=== PATIENT | female | born 1975 | race Caucasian/White ===

== ENCOUNTER 2023-06-19 17:55 | Inpatient (IN) | payer BC, SELFPAY ==
[2023-06-19] VITALS (38 sets, daily range): BP systolic 106–141; BP diastolic 65–85; PULSE 101–121; RESP 14–29; TEMP 36.8–37.6; O2SAT 99–100; BMI 29.5; BMI 28.9
--- NOTE | 2023-06-19 18:29 | ED_ITS ---
HPI - General Adult General Chief complaint: Nausea/Vomiting/Diarrhea Stated complaint: NAUSEA/VOMITING, SIDE PAIN Time Seen by Provider: 06/19/23 18:14 Mode of arrival: walk-in History of Present Illness HPI narrative: patient is a 48-year-old female to history of insulin-dependent diabetes who presents to the Emergency Room for the evaluation of vomiting, diarrhea and abdominal pain for the last three days. She states she had right-sided abdominal pain over the weekend which is improved at this time but she has had vomiting and diarrhea that began last night. Blood sugar in triage is over three hundred. She has not had any fevers, chills, cough, congestion. She denies any urinary symptoms. No previous abdominal surgeries. She is not concerned for . She states she is supposed to have an incision and drainage on a chest wall abscess that has been present for several weeks with a surgeon tomorrow afternoon. No medications taken prior to arrival. Related Data Allergies Allergy/AdvReac Type Severity Reaction Status Date / Time No Known Drug Allergies Allergy Verified 06/19/23 17:59 Review of Systems ROS Constitutional Denies: fever or chills Ears, nose, mouth, and throat Denies: throat pain Cardiovascular Denies: chest pain Respiratory Denies: shortness of breath or cough Gastrointestinal Reports: abdominal pain, nausea and vomiting Genitourinary Denies: painful urination Musculoskeletal Denies: back pain or neck pain Integumentary/Breast Denies: rash Neurological Denies: headache Allergic/Immunologic Denies: hives Exam Narrative Exam Narrative: Gen.: Awake, alert, in no distress Head: Normocephalic, atraumatic ENT: dry mucous membranes, breath smells of ketones Respiratory: No respiratory distress, lungs clear bilaterally Cardio: tachycardia Gastrointestinal: Abdomen is soft, mildly distended but not tender, no guarding or rebound Extremities: Moves extremities equally, no injuries noted Psych: Normal mood and affect Neuro: No focal neuro deficit Skin: Warm, dry, intact Constitutional Vital Signs, click to edit/add: Last Vital Signs Temp 98.2 F 06/19/23 18:00 Pulse 116 H 06/19/23 18:00 Resp 18 06/19/23 18:00 BP 132/66 06/19/23 18:00 Pulse Ox 99 06/19/23 18:00 O2 Del Method Room Air 08/07/23 19:35 Course Vital Signs Vital signs: Vital Signs Temperature 98.2 F 06/19/23 18:00 Pulse Rate 116 H 06/19/23 18:00 Respiratory Rate 18 06/19/23 18:00 Blood Pressure 132/66 06/19/23 18:00 Pulse Oximetry 99 06/19/23 18:00 Oxygen Delivery Method Room Air 06/19/23 18:00 Temperature 98.2 F 06/19/23 18:00 Pulse Rate 116 H 06/19/23 18:00 Respiratory Rate 18 06/19/23 18:00 Blood Pressure 132/66 06/19/23 18:00 Pulse Oximetry 99 06/19/23 18:00 Oxygen Delivery Method Room Air 06/19/23 19:35 Medical Decision Making MDM Narrative Medical decision making narrative: on arrival to the Emergency Room, patient was noted to be clinically dehydrated, smell of ketones and tachycardic. IV was established and the patient received 2 L of IV fluids, morphine for pain and Zofran for nausea. She had no persistent emesis in the Emergency Room. labs studies show that the patient has significant leukocytosis, no bandemia. Blood sugar is elevated, CO2 is 7.5 with anion gap 31.3. Patient noted to have small acetone on blood studies as well, blood cultures are pending. Chest x-rays unremarkable. CT of the abdomen and pelvis with IV contrast shows the patient has ruptured appendicitis with formation of abscess. Discussed with Dr. Cool (2014) for general surgery who recommended treatment with invanz and admission to medical service for optimization before surgery tomorrow morning. Discussed with Dr. Bansal (2019) for hospitalist service and the patient will be admitted for further evaluation and treatment ICU with insulin drip initiated at seven units per hour. Patient's pain is controlled at this time. Critical care time thirty-five minutes Medical Records Medical records reviewed: Yes I reviewed the patient's medical records Lab Data Lab results reviewed: Yes I reviewed the patient's lab results Labs: Lab Results 06/19/23 06/19/23 Range/Units 18:29 19:22 WBC 20.4 H (4.0-11.0) 10^3/uL RBC 4.58 (4.20-5.40) 10^6/uL Hgb 13.1 (12.0-16.0) g/dL Hct 40.5 (36.0-48.0) % MCV 88.4 (81.0-99.0) fL MCH 28.6 (26.7-34.0) pg MCHC 32.3 (29.9-35.2) g/dL RDW 13.1 (11.0-15.0) % Plt Count 325 (150-450) 10^3/uL MPV 10.2 (9.5-13.5) fL Neut % (Auto) 88.2 H (43.0-75.0) % Lymph % (Auto) 4.0 L (20.5-60.0) % [place] % (Auto) 5.9 (1.7-12.0) % Eos % (Auto) 0.0 L (0.9-7.0) % Baso % (Auto) 0.5 (0.2-2.0) % Neut # (Auto) 18.0 H (1.4-6.5) 10^3/uL Lymph # (Auto) 0.8 L (1.2-3.8) 10^3/uL [place] # (Auto) 1.2 H (0.3-0.8) 10^3/uL Eos # (Auto) 0.0 (0.0-0.7) 10^3/uL Baso # (Auto) 0.1 (0.0-0.1) 10^3/uL Abs Immat Gran (auto) 0.28 H (0.00-0.03) 10^3/uL Imm/Tot Granulo (auto) 1.4 H (0.0-0.5) % Sodium 133 L (136-145) mmol/L Potassium 3.8 (3.5-5.1) mmol/L Chloride 98 (98-107) mmol/L Carbon Dioxide 7.5 L (21.0-32.0) mmol/L Anion Gap 31.3 BUN 7.0 (7.0-18.0) mg/dL Creatinine 0.87 (0.55-1.02) mg/dL Est GFR ( Amer) >60 (>=60) Est GFR (Non-Af Amer) >60 (>=60) BUN/Creatinine Ratio 8.0 Glucose 379 H (74-106) mg/dL Lactate 1.5 (0.4-2.0) mmol/L Calcium 8.6 (8.5-10.1) mg/dL Total Bilirubin 0.8 (0.2-1.0) mg/dL AST 16 (15-37) U/L ALT 20 (14-59) U/L Alkaline Phosphatase 121 H (46-116) U/L Troponin I High Sens 7.8 (4.0-51.3) pg/mL Total Protein 8.6 H (6.4-8.2) g/dL Albumin 2.8 L (3.4-5.0) g/dL Globulin 5.8 g/dL Albumin/Globulin Ratio 0.5 Lipase 32.0 L (73.0-393.0) U/L Serum HCG, Qual Negative (NEGATIVE) Urine Color Lt. yellow (YELLOW) Urine Clarity Clear (CLEAR) Urine pH 5.5 (5.0-9.0) Ur Specific [place] 1.025 (1.005-1.025) Urine Protein 100 A (NEG/TRACE) mg/dL Urine Glucose (UA) 500 A (NEGATIVE) mg/dL Urine Ketones >=80 A (NEGATIVE) mg/dL Urine Occult Blood Large A (NEGATIVE) Urine Nitrite Negative (NEGATIVE) Urine Bilirubin Negative (NEGATIVE) Urine Urobilinogen 0.2 (0.2-1.0) EU/dL Ur Leukocyte Esterase Negative (NEGATIVE) Acetone, Qual Small A (NEGATIVE) Imaging Data CT scan - abdomen: Attestation: I have reviewed the pertinent imaging results. Radiologist's impression: Procedure: CT abdomen pelvis w con EXAM: CT abdomen pelvis w con TECHNIQUE: Axial CT images were obtained of the abdomen and pelvis with intravenous contrast. Sagittal and coronal reformatted images were also obtained. Dose reduction techniques were achieved by using automated exposure control and/or adjustment of mA and/or kV according to patient size and/or use of iterative reconstruction technique. HISTORY: Abdominal pain COMPARISON: None. FINDINGS: Lower chest: The lower lungs are clear. Liver: Partial resection of the right lobe of liver. Decreased attenuation of the remaining liver consistent with steatosis. Gallbladder: Status post cholecystectomy. No significant biliary dilatation. Pancreas: The pancreas is homogeneous without evidence for mass lesion or inflammation. Spleen: The spleen is unremarkable without evidence for mass lesion. Adrenal glands: The adrenal glands are unremarkable Kidneys and bladder: Small cyst of the anterior cortex right kidney. Unremarkable left kidney. The ureters demonstrate normal caliber. Urinary bladder is distended. GI Tract: Stomach is unremarkable. Visualized small bowel is unremarkable without evidence for obstruction or active inflammation. The appendix is swollen with surrounding inflammation. There is a 2.5 cm gas and fluid collection near the base of the appendix suggesting rupture and abscess. Additional extraluminal fluid and gas medial to the appendix.7 mm appendicolith is seen at the base of the appendix.Secondary inflammation of the mid sigmoid colon. Reproductive: 3.6 cm fibroid of the posterior fundus of the uterus. Lymph nodes: No retroperitoneal or abdominal lymphadenopathy. Vascular: The aorta is not dilated. Peritoneum: Small amount of free fluid in the pelvis. Abdominal wall: Unremarkable without acute abnormality. IMPRESSION: Findings consistent with ruptured appendicitis including a 2.4 cm abscess near the base the appendix. There is also a small amount of fluid and gas medial to the base of the appendix which may represent additional developing abscess. Electronically authenticated by: RAISA TOVAR Date: 06/19/2023 20:00 Chest x-ray: Attestation: I have reviewed the pertinent imaging results. Radiologist's impression: Procedure: XR chest 1V EXAMINATION: XR chest 1V HISTORY: Vomiting COMPARISON: None. TECHNIQUE: Portable chest FINDINGS: The lung parenchyma is free of consolidation or infiltrate. No pneumothorax or pleural effusion. The cardiac, mediastinal and hilar contours are normal. The visualized osseous structures exhibit no gross abnormality. IMPRESSION: No acute cardiopulmonary abnormality. Electronically authenticated by: COBY AYERS Date: 06/19/2023 20:15 ECG Data Attestation: I personally reviewed and interpreted this ECG as follows: (sinus tachycardia at a rate of 114, no acute ST elevation or ectopy. EKG reviewed by attending physician) Discharge Plan Discharge Chief Complaint: Nausea/Vomiting/Diarrhea Patient Disposition: Admitted As Inpatient Time of Disposition Decision: 20:29 Referrals: Physician,Non-Staff, MD [Primary Care Provider] - 1 week
[2023-06-19] MEDS: 0.9 % SODIUM CHLORIDE 1,000 ML 100 ML IV (18:31)
[2023-06-19] MEDS: ONDANSETRON PF 4 MG/2 ML VIAL IV (18:32)
[2023-06-19] MEDS: MORPHINE SULFATE 4 MG/ML VIAL IV (18:38)
[2023-06-19 18:43] LABS: Basophils Absolute Auto 0.1 10^3/uL (0.0-0.1); Basophils Percent Auto 0.5 % (0.2-2.0); Hematocrit 40.5 % (36.0-48.0); Hemoglobin 13.1 g/dL (12.0-16.0); Immature Granulocytes Abs Auto 0.28 10^3/uL (0.00-0.03); Immature Granulocytes Pct Auto 1.4 % (0.0-0.5); Lymphocytes Absolute Auto 0.8 10^3/uL (1.2-3.8); Mean Corpuscular HGB Conc 32.3 g/dL (29.9-35.2); Mean Corpuscular Hemoglobin 28.6 pg (26.7-34.0); Mean Corpuscular Volume 88.4 fL (81.0-99.0); Mean Platelet Volume 10.2 fL (9.5-13.5); Monocytes Absolute Auto 1.2 10^3/uL (0.3-0.8); Monocytes Percent Auto 5.9 % (1.7-12.0); Neutrophils Percent Auto 88.2 % (43.0-75.0); Platelet Count 325 10^3/uL (150-450); Red Blood Count 4.58 10^6/uL (4.20-5.40); Red Cell Distribution Width 13.1 % (11.0-15.0); White Blood Count 20.4 10^3/uL (4.0-11.0)
[2023-06-19 18:49] LABS: HCG Qualitative NEGATIVE (NEGATIVE)
[2023-06-19 18:55] LABS: Acetone SMALL (NEGATIVE)
[2023-06-19 19:00] LABS: Lactate/Lactic Acid 1.5 mmol/L (0.4-2.0)
[2023-06-19 19:06] LABS: Alanine Aminotransferase 20 U/L (14-59); Albumin Globulin Ratio 0.5; Albumin Level 2.8 g/dL (3.4-5.0); Alkaline Phosphatase 121 U/L (46-116); Anion Gap 31.3; Aspartate Amino Transferase 16 U/L (15-37); Bilirubin Total 0.8 mg/dL (0.2-1.0); Calcium 8.6 mg/dL (8.5-10.1); Carbon Dioxide 7.5 mmol/L (21.0-32.0); Chloride 98 mmol/L (98-107); Estimated GFR (African America >60 (>=60); Estimated GFR (Non-African Ame >60 (>=60); Globulin 5.8 g/dL; Glucose 379 mg/dL (74-106); Potassium 3.8 mmol/L (3.5-5.1); Sodium 133 mmol/L (136-145); Total Protein 8.6 g/dL (6.4-8.2)
--- NOTE | 2023-06-19 19:19 | XR_ITS ---
The [address] [address] Patient Name: DARREN CARBAJAL MRN: [id number] date: 1975 Sex: F Assigned Patient Location: ED.MAIN Current Patient Location: ED.MAIN Accession/Order Number: [id number] Exam Date: 06/19/2023 19:38 Report Date: 06/19/2023 20:15 At the request of: NURYS MOSS Procedure: XR chest 1V EXAMINATION: XR chest 1V HISTORY: Vomiting COMPARISON: None. TECHNIQUE: Portable chest FINDINGS: The lung parenchyma is free of consolidation or infiltrate. No pneumothorax or pleural effusion. The cardiac, mediastinal and hilar contours are normal. The visualized osseous structures exhibit no gross abnormality. XR/XR chest 1V IMPRESSION: No acute cardiopulmonary abnormality. Electronically authenticated by: COBY AYERS Date: 06/19/2023 20:15
--- NOTE | 2023-06-19 19:20 | ECG_ITS ---
The [facility] Test Date: 2023-06-19 Pat Name: DARREN CARBAJAL Department: Room: - Gender: Female Residential Care Facility Manager: : 1975 Requested By: [id number] Order Number: [id number] Reading MD: TATIANA ADDISON Measurements Intervals [place] Rate: 114 P: 47 DC: 164 QRS: -44 QRSD: 96 T: 42 QT: 344 QTc: 412 Interpretive Statements 1120 Sinus tachycardia 4068 Nonspecific [place] abnormality 7200 Abnormal left axis deviation 9140 abnormal rhythm ECG Electronically Signed On 06-20-2023 7:16:08 EDT by TATIANA ADDISON
[2023-06-19 19:49] LABS: Troponin I High Sensitivity 7.8 pg/mL (4.0-51.3)
[2023-06-19] MEDS: 0.9 % SODIUM CHLORIDE 1,000 ML 1000 ML IV (20:06)
[2023-06-19 20:09] LABS: Bilirubin Urine NEGATIVE (NEGATIVE); Blood Urine LARGE (NEGATIVE); Clarity Urine CLEAR (CLEAR); Color Urine LT. YELLOW (YELLOW); Glucose Urine UA 500 mg/dL (NEGATIVE); Ketones Urine >=80 mg/dL (NEGATIVE); Leukocyte Esterase Urine NEGATIVE (NEGATIVE); Nitrite Urine NEGATIVE (NEGATIVE); Protein Urine 100 mg/dL (NEG/TRACE); Specific Gravity Urine 1.025 (1.005-1.025); Urobilinogen Urine 0.2 EU/dL (0.2-1.0); pH Urine 5.5 (5.0-9.0)
[2023-06-19 20:12] LABS: Urine Microscopic Indicated YES
[2023-06-19 20:28] LABS: Mucus Urine NONE SEEN (NONE SEEN); RBC Urine 20-50 #/HPF (0-2); Squamous Epithelial Cell Urine RARE #/LPF (NONE/RARE); WBC Urine 0-2 #/HPF (NONE SEEN)
[2023-06-19 20:29] LABS: Bacteria Urine TRACE #/HPF (NONE SEEN); Cast Seen? SEEN #/LPF (NONE SEEN); Crystals Seen? None Seen #/HPF (None Seen); Fine Granular Casts Urine RARE; Urine Culture Indicated NO
[2023-06-19] MEDS: ERTAPENEM SODIUM 1 GM in 0.9 % SODIUM CHLORIDE 50 ML IV (20:45)
[2023-06-19] MEDS: INSULIN REGULAR IN 0.9 % NACL 100 UNIT/100 ML PLAST..BAG 7 UNIT IV (20:45)
[2023-06-19 21:58] LABS: Glucometer 278 mg/dL (74-106)
[2023-06-19] MEDS: SODIUM CHLORIDE 0.45 % 1,000 ML 200 ML IV (23:00)
--- NOTE | 2023-06-19 23:39 | W.PM.TELEPN ---
Progress Note: Subjective Subjective Interval history: The patient is a 48yo woman with a PMHx of T2DM, Hypertension who presented to the ED with abdominal pain. She states that she first started to have pain on 06/15/2023 on the right side without any radiation. She did not notice any fevers or chills, but her noted that she felt hot when he touched her. The pain continued until 06/18/2023 when it subsided. She thought that maybe she had had a kidney stone, but by the evening she had developed nausea, vomiting, and worsening abdominal pain. Today, she had to come in because the pain was 10/10 and right sided. She was found to have a perforated appendix and also to have hyperglycemia with metabolic acidosis, an anion gap and elevated ketones. She admits that she has not been taking any of her medications about about 3 weeks because she ran out and she lost access to her former PCP and needs to find a new one. Exam Constitutional Vital Signs, click to edit/add: Last Vital Signs Temp 99.7 F 06/19/23 21:46 Pulse 115 H 06/19/23 21:49 Resp 20 06/19/23 21:49 BP 141/85 06/19/23 21:46 Pulse Ox 100 06/19/23 21:49 O2 Del Method Room Air 06/19/23 21:49 Documenting provider has reviewed patient's vital signs: yes Common normals: no apparent distress, oriented x3, no limitations, alert and well nourished General appearance: comfortable HENMT Common normals: normocephalic Chest Common normals: inspection of chest normal Respiratory Common normals: normal respiratory effort, no retractions, no use of accessory muscles and clear to auscultation bilaterally Cardio Common normals: no JVD, regular rate, regular rhythm, S1 normal heart sound, S2 normal heart sound and no murmurs GI Common normals: Normal to inspection, nondistended, normoactive bowel sounds present Palpation: tender and guarding Extremity Common normals: normal to inspection, full ROM, no joint enlargement, no clubbing, cyanosis or edema, no calf tenderness and no pedal edema Neuro Common normals: oriented x3, CN's II-XII intact bilaterally, moves all extremities, no focal motor deficits, no sensory deficits noted, deep tendon reflexes 2+ bilaterally and gait normal Psych Common normals: mental status grossly normal, thought process normal, cooperative, affect normal, speech normal, activity/motor behavior normal, denies hallucinations, denies homicidal ideation and denies suicidal ideation Progress Note: Objective Labs Labs: Short CBC 06/19/23 Range/Units 18:29 WBC 20.4 H (4.0-11.0) 10^3/uL Hgb 13.1 (12.0-16.0) g/dL Hct 40.5 (36.0-48.0) % Plt Count 325 (150-450) 10^3/uL BMP 06/19/23 18:29 Sodium 133 L Potassium 3.8 Chloride 98 Carbon Dioxide 7.5 L BUN 7.0 Creatinine 0.87 Glucose 379 H Calcium 8.6 Liver Function 06/19/23 Range/Units 18:29 Total Bilirubin 0.8 (0.2-1.0) mg/dL AST 16 (15-37) U/L ALT 20 (14-59) U/L Alkaline Phosphatase 121 H (46-116) U/L Albumin 2.8 L (3.4-5.0) g/dL Urine 06/19/23 Range/Units 19:22 Urine Color Lt. yellow (YELLOW) Urine Clarity Clear (CLEAR) Urine pH 5.5 (5.0-9.0) Ur Specific [place] 1.025 (1.005-1.025) Urine Protein 100 A (NEG/TRACE) mg/dL Urine Glucose (UA) 500 A (NEGATIVE) mg/dL Progress Note: A&P Assessment and Plan (1) Acute appendicitis: Assessment and Plan: See below (2) DKA (diabetic ketoacidosis): Assessment and Plan: See below (3) Acute dehydration: Assessment and Plan: See below (4) Hypertension: Assessment and Plan: See below Plan 1. Perforated appendicitis The patient presented with abdominal pain and was foudn to have leukocytosis and a CT that showed a perforated appendix. She requires surgery after she is stabilized. - admit to hospitalist service - General surgery consulted - c/w ertapenem - f/u blood cultures - pain control - c/w IVF 2. Diabetic Ketoacidosis T2DM Dehydration The patient has been non-compliant with her insulin and metformin for about 3 weeks and presents with DKA, likely partially driven by her appendicitis. She also appears dehydrated secondary to DKA and infection. - c/w insulin drip - c/w 1/2 NS at 200ml/hr and switch to D5 1/2NS at 200 ml/hr once BG <200. - trend BG q1h - trend BMP, Phos, Mg q2h whilst on insulin drip - f/u HbA1c 3. Hypertension Elevated in the setting of pain and non-compliance. - hold lisinopril Telemedicine Attestation Telemedicine Attestation I conducted this encounter from [place] via secure live, [id number] video conference with the patient, located at [facility] with Donna Posada Prior to the interview, the risks and benefits of telemedicine were discussed with the patient and verbal consent was obtained.
[2023-06-19 23:58] LABS: Anion Gap 21.1; BUN Creatinine Ratio 7.4; Calcium 7.7 mg/dL (8.5-10.1); Carbon Dioxide 10.6 mmol/L (21.0-32.0); Chloride 107 mmol/L (98-107); Estimated GFR (African America >60 (>=60); Estimated GFR (Non-African Ame >60 (>=60); Glucose 233 mg/dL (74-106); Magnesium 1.7 mg/dL (1.8-2.4); Sodium 136 mmol/L (136-145)
[2023-06-20] VITALS (162 sets, daily range): BP systolic 85–132; BP diastolic 46–83; PULSE 73–116; RESP 9–34; TEMP 36.3–37.3; O2SAT 92–99; BMI 28.9
[2023-06-20 00:02] LABS: Phosphorus 1.1 mg/dL (2.6-4.7); Potassium 2.7 mmol/L (3.5-5.1)
[2023-06-20] MEDS: DEXTROSE 5 %-0.45 % SOD CHLOR 1,000 ML IV.SOLN 1000 ML IV (00:39)
[2023-06-20] MEDS: POTASSIUM CHLORIDE IN 0.9%NACL 1,000 ML 200 MEQ IV (01:32)
[2023-06-20] MEDS: POTASSIUM CHLORIDE IN WATER 10 MEQ/100 ML PIGGYBACK 100 MEQ IV ×4 (01:33→04:56)
[2023-06-20] MEDS: ACETAMINOPHEN 325 MG TABLET 650 MG PO (01:45)
[2023-06-20 02:39] LABS: Anion Gap 17.7; BUN Creatinine Ratio 9.2; Calcium 7.7 mg/dL (8.5-10.1); Carbon Dioxide 13.1 mmol/L (21.0-32.0); Chloride 108 mmol/L (98-107); Estimated GFR (African America >60 (>=60); Estimated GFR (Non-African Ame >60 (>=60); Glucose 147 mg/dL (74-106); Sodium 136 mmol/L (136-145)
[2023-06-20 02:48] LABS: Phosphorus 1.1 mg/dL (2.6-4.7); Potassium 2.8 mmol/L (3.5-5.1)
[2023-06-20 04:47] LABS: Basophils Absolute Auto 0.1 10^3/uL (0.0-0.1); Basophils Percent Auto 0.4 % (0.2-2.0); Eosinophils Percent Auto 0.1 % (0.9-7.0); Hematocrit 34.8 % (36.0-48.0); Immature Granulocytes Abs Auto 0.19 10^3/uL (0.00-0.03); Immature Granulocytes Pct Auto 1.1 % (0.0-0.5); Lymphocytes Absolute Auto 1.1 10^3/uL (1.2-3.8); Lymphocytes Percent Auto 6.5 % (20.5-60.0); Mean Corpuscular HGB Conc 31.6 g/dL (29.9-35.2); Mean Corpuscular Hemoglobin 28.1 pg (26.7-34.0); Mean Platelet Volume 9.9 fL (9.5-13.5); Monocytes Absolute Auto 1.3 10^3/uL (0.3-0.8); Monocytes Percent Auto 7.9 % (1.7-12.0); Neutrophils Absolute Auto 14.1 10^3/uL (1.4-6.5); Platelet Count 283 10^3/uL (150-450); Red Blood Count 3.91 10^6/uL (4.20-5.40); Red Cell Distribution Width 13.2 % (11.0-15.0); White Blood Count 16.8 10^3/uL (4.0-11.0)
[2023-06-20 05:14] LABS: Alanine Aminotransferase 18 U/L (14-59); Albumin Globulin Ratio 0.5; Albumin Level 2.2 g/dL (3.4-5.0); Alkaline Phosphatase 98 U/L (46-116); Anion Gap 15.9; Aspartate Amino Transferase 10 U/L (15-37); BUN Creatinine Ratio 8.6; Bilirubin Total 0.4 mg/dL (0.2-1.0); Calcium 7.9 mg/dL (8.5-10.1); Carbon Dioxide 13.5 mmol/L (21.0-32.0); Chloride 110 mmol/L (98-107); Estimated GFR (African America >60 (>=60); Estimated GFR (Non-African Ame >60 (>=60); Globulin 4.6 g/dL; Glucose 159 mg/dL (74-106); Potassium 3.4 mmol/L (3.5-5.1); Sodium 136 mmol/L (136-145); Total Protein 6.8 g/dL (6.4-8.2)
[2023-06-20 05:17] LABS: Phosphorus 1.4 mg/dL (2.6-4.7)
[2023-06-20] MEDS: HYDROMORPHONE HCL 0.5 MG/0.5 ML SYRINGE IV (08:22)
[2023-06-20] MEDS: ONDANSETRON PF 4 MG/2 ML VIAL IV (08:24)
[2023-06-20 10:26] LABS: Anion Gap 12.4; BUN Creatinine Ratio 10.3; Calcium 7.8 mg/dL (8.5-10.1); Chloride 108 mmol/L (98-107); Estimated GFR (African America >60 (>=60); Estimated GFR (Non-African Ame >60 (>=60); Glucose 285 mg/dL (74-106); Potassium 3.4 mmol/L (3.5-5.1); Sodium 134 mmol/L (136-145)
[2023-06-20 10:29] LABS: Phosphorus 1.1 mg/dL (2.6-4.7)
[2023-06-20] MEDS: DEXTROSE 5 %-0.45 % SOD CHLORD 1,000 ML 200 ML IV (10:34)
[2023-06-20] MEDS: INSULIN DETEMIR 300 UNIT/3 ML INSULN.PEN 20 UNIT SUBQ (10:54)
--- NOTE | 2023-06-20 10:58 | PM.HP ---
H&P: HPI History of Present Illness Chief complaint: Abdominal pain Narrative: 48 y/o female to ER with abdominal pain for several days. Pain in RLQ and across lower abdomen. Pain with moving or bending. Developed severe nausea and emesis. Pain worsened and to ER. Labs showed glucose over 300 and elevated WBC. Patient had not taken medication inculding insulin for [address] abdomen showed perforated appendicitis with abscess. Admitted for treatment. Started invanz and surgery consulted. Started IV fluids and insulin drip. Labs slowly improved. Pain tolerable with medication. Review of Systems ROS Constitutional Denies: fever, chills or night sweats Cardiovascular Denies: chest pain, palpitations or edema Respiratory Denies: shortness of breath, cough or wheezing Gastrointestinal Reports: abdominal pain, nausea and vomiting; Denies: diarrhea Genitourinary Denies: painful urination [facility] Medical History (Updated 06/20/23 @ 11:04 by Santy Squires MD) Meds Home Medications and Allergies Home Medications Medication Instructions Recorded Confirmed Type Novolin R Regular U100 Insulin 06/19/23 History insulin glargine 100 unit/mL (3 20 unit subcut ACHS 06/19/23 06/19/23 History mL) subcutaneous pen (Basaglar KwikPen U-100 Insulin) lisinopril 10 mg tablet 10 mg PO DAILY 06/19/23 06/19/23 History metformin 1,000 mg tablet 1,000 mg PO BID 06/19/23 06/19/23 History Allergies Allergy/AdvReac Type Severity Reaction Status Date / Time No Known Drug Allergies Allergy Verified 06/19/23 17:59 Exam Constitutional Vital Signs, click to edit/add: Last Vital Signs Temp 97.8 F 06/20/23 07:59 Pulse 96 H 06/20/23 09:20 Resp 16 06/20/23 09:20 BP 106/69 06/20/23 07:00 Pulse Ox 97 06/20/23 09:20 O2 Del Method Room Air 06/20/23 07:59 Documenting provider has reviewed patient's vital signs: yes Common normals: no apparent distress, oriented x3 and alert HENMT Common normals: normocephalic Eye Common normals: PERRL and EOMs intact bilaterally Respiratory Common normals: normal respiratory effort and clear to auscultation bilaterally Cardio Common normals: regular rate, regular rhythm, no gallops, no murmurs and no rub GI Auscultation: normoactive bowel sounds Palpation: tender Details: RLQ; no guarding and no rebound tenderness present Extremity Common normals: no pedal edema Results Labs Labs: Short CBC 06/19/23 06/20/23 Range/Units 18:29 04:01 WBC 20.4 H 16.8 H (4.0-11.0) 10^3/uL Hgb 13.1 11.0 L (12.0-16.0) g/dL Hct 40.5 34.8 L (36.0-48.0) % Plt Count 325 283 (150-450) 10^3/uL BMP 06/19/23 06/19/23 06/20/23 18:29 23:29 02:09 Sodium 133 L 136 136 Potassium 3.8 2.7 L* 2.8 L* Chloride 98 107 108 H Carbon Dioxide 7.5 L 10.6 L 13.1 L BUN 7.0 6.0 L 7.0 Creatinine 0.87 0.81 0.76 Glucose 379 H 233 H 147 H Calcium 8.6 7.7 L 7.7 L 06/20/23 06/20/23 04:01 10:02 Sodium 136 134 L Potassium 3.4 L 3.4 L Chloride 110 H 108 H Carbon Dioxide 13.5 L 17.0 L BUN 6.0 L 6.0 L Creatinine 0.70 0.58 Glucose 159 H 285 H Calcium 7.9 L 7.8 L Liver Function 06/19/23 06/20/23 Range/Units 18:29 04:01 Total Bilirubin 0.8 0.4 (0.2-1.0) mg/dL AST 16 10 L (15-37) U/L ALT 20 18 (14-59) U/L Alkaline Phosphatase 121 H 98 (46-116) U/L Albumin 2.8 L 2.2 L (3.4-5.0) g/dL Urine 06/19/23 Range/Units 19:22 Urine Color Lt. yellow (YELLOW) Urine Clarity Clear (CLEAR) Urine pH 5.5 (5.0-9.0) Ur Specific [place] 1.025 (1.005-1.025) Urine Protein 100 A (NEG/TRACE) mg/dL Urine Glucose (UA) 500 A (NEGATIVE) mg/dL Imaging CT scan - abdomen: Attestation: I have reviewed the pertinent imaging results. Assessment and Plan Assessment and Plan (1) Appendicitis with perforation: (2) Appendicitis with abscess: (3) DKA (diabetic ketoacidosis): (4) Acute dehydration: (5) Hypertension: Plan General surgery consulted and continue invanz. Presented with DKA and improved with IV fluids and insulin drip. Most recent chem 8 shows normalization of anion gap. Given levemir and stop insulin drip 1 hour later. Will change accuchecks to every 6 hours and cover with novolog sliding scale. Monitor vitals and labs. Management of appendicitis per surgery.
[2023-06-20] MEDS: DEXTROSE 5%-0.9% NACL 1,000 ML IV.SOLN 100 ML IV (10:59)
--- NOTE | 2023-06-20 11:11 | P.GSCN_ITS ---
History of Present Illness Consult details Consult date: 06/20/23 Narrative: The patient is a 48-year-old female who presented to emergency room yesterday with approximately four-day history of abdominal pain. This gradually increased in intensity over these days and suddenly patient developed episodes of nausea and vomiting. Through the emergency department she was found to have a leukocytosis and CT of the abdomen and pelvis revealed findings consistent with acute appendicitis with possible localized perforation. Patient was admitted to the intensive care unit based on IV antibiotics and now we have recommended to proceed with robotic laparoscopic assisted appendectomy. Review of Systems ROS Cardiovascular Denies: chest pain Gastrointestinal Reports: abdominal pain, nausea and vomiting Musculoskeletal Reports: back pain [facility], [facility] Medical History (Updated 06/20/23 @ 11:04 by Santy Squires MD) Meds Home Medications and Allergies Home Medications Medication Instructions Recorded Confirmed Type Novolin R Regular U100 Insulin 06/19/23 History insulin glargine 100 unit/mL (3 20 unit subcut ACHS 06/19/23 06/19/23 History mL) subcutaneous pen (Basaglar KwikPen U-100 Insulin) lisinopril 10 mg tablet 10 mg PO DAILY 06/19/23 06/19/23 History metformin 1,000 mg tablet 1,000 mg PO BID 06/19/23 06/19/23 History Allergies Allergy/AdvReac Type Severity Reaction Status Date / Time No Known Drug Allergies Allergy Verified 06/19/23 17:59 Exam Constitutional Vital Signs, click to edit/add: Last Vital Signs Temp 97.8 F 06/20/23 07:59 Pulse 96 H 06/20/23 09:20 Resp 16 06/20/23 09:20 BP 106/69 06/20/23 07:00 Pulse Ox 97 06/20/23 09:20 O2 Del Method Room Air 06/20/23 07:59 Common normals: no apparent distress HENMT Common normals: normocephalic Neck & C-Spine Common normals: supple GI Other: moderate tenderness in right lower quadrant and suprapubic region Neuro Common normals: oriented x3 Psych Common normals: mental status grossly normal Results Labs Labs: Abnormal lab results 06/19/23 06/19/23 06/19/23 Range/Units 18:29 19:22 21:56 WBC 20.4 H (4.0-11.0) 10^3/uL RBC (4.20-5.40) 10^6/uL Hgb (12.0-16.0) g/dL Hct (36.0-48.0) % Neut % (Auto) 88.2 H (43.0-75.0) % Lymph % (Auto) 4.0 L (20.5-60.0) % Eos % (Auto) 0.0 L (0.9-7.0) % Neut # (Auto) 18.0 H (1.4-6.5) 10^3/uL Lymph # (Auto) 0.8 L (1.2-3.8) 10^3/uL [place] # (Auto) 1.2 H (0.3-0.8) 10^3/uL Abs Immat Gran (auto) 0.28 H (0.00-0.03) 10^3/uL Imm/Tot Granulo (auto) 1.4 H (0.0-0.5) % Sodium 133 L (136-145) mmol/L Potassium (3.5-5.1) mmol/L Chloride (98-107) mmol/L Carbon Dioxide 7.5 L (21.0-32.0) mmol/L BUN (7.0-18.0) mg/dL Glucose 379 H (74-106) mg/dL Calcium (8.5-10.1) mg/dL Phosphorus (2.6-4.7) mg/dL Magnesium (1.8-2.4) mg/dL AST (15-37) U/L Alkaline Phosphatase 121 H (46-116) U/L Total Protein 8.6 H (6.4-8.2) g/dL Albumin 2.8 L (3.4-5.0) g/dL Lipase 32.0 L (73.0-393.0) U/L Urine Protein 100 A (NEG/TRACE) mg/dL Urine Glucose (UA) 500 A (NEGATIVE) mg/dL Urine Ketones >=80 A (NEGATIVE) mg/dL Urine Occult Blood Large A (NEGATIVE) Urine RBC 20-50 A (0-2) #/HPF Urine WBC 0-2 A (NONE SEEN) #/HPF Urine Bacteria Trace A (NONE SEEN) #/HPF Urine Casts Seen A (NONE SEEN) #/LPF Acetone, Qual Small A (NEGATIVE) POC Glucose 278 H (74-106) mg/dL 06/19/23 06/20/23 06/20/23 Range/Units 23:29 02:09 04:01 WBC 16.8 H (4.0-11.0) 10^3/uL RBC 3.91 L (4.20-5.40) 10^6/uL Hgb 11.0 L (12.0-16.0) g/dL Hct 34.8 L (36.0-48.0) % Neut % (Auto) 84.0 H (43.0-75.0) % Lymph % (Auto) 6.5 L (20.5-60.0) % Eos % (Auto) 0.1 L (0.9-7.0) % Neut # (Auto) 14.1 H (1.4-6.5) 10^3/uL Lymph # (Auto) 1.1 L (1.2-3.8) 10^3/uL [place] # (Auto) 1.3 H (0.3-0.8) 10^3/uL Abs Immat Gran (auto) 0.19 H (0.00-0.03) 10^3/uL Imm/Tot Granulo (auto) 1.1 H (0.0-0.5) % Sodium (136-145) mmol/L Potassium 2.7 L* 2.8 L* 3.4 L (3.5-5.1) mmol/L Chloride 108 H 110 H (98-107) mmol/L Carbon Dioxide 10.6 L 13.1 L 13.5 L (21.0-32.0) mmol/L BUN 6.0 L 6.0 L (7.0-18.0) mg/dL Glucose 233 H 147 H 159 H (74-106) mg/dL Calcium 7.7 L 7.7 L 7.9 L (8.5-10.1) mg/dL Phosphorus 1.1 L* 1.1 L* 1.4 L* (2.6-4.7) mg/dL Magnesium 1.7 L (1.8-2.4) mg/dL AST 10 L (15-37) U/L Alkaline Phosphatase (46-116) U/L Total Protein (6.4-8.2) g/dL Albumin 2.2 L (3.4-5.0) g/dL Lipase (73.0-393.0) U/L Urine Protein (NEG/TRACE) mg/dL Urine Glucose (UA) (NEGATIVE) mg/dL Urine Ketones (NEGATIVE) mg/dL Urine Occult Blood (NEGATIVE) Urine RBC (0-2) #/HPF Urine WBC (NONE SEEN) #/HPF Urine Bacteria (NONE SEEN) #/HPF Urine Casts (NONE SEEN) #/LPF Acetone, Qual (NEGATIVE) POC Glucose (74-106) mg/dL 06/20/23 Range/Units 10:02 WBC (4.0-11.0) 10^3/uL RBC (4.20-5.40) 10^6/uL Hgb (12.0-16.0) g/dL Hct (36.0-48.0) % Neut % (Auto) (43.0-75.0) % Lymph % (Auto) (20.5-60.0) % Eos % (Auto) (0.9-7.0) % Neut # (Auto) (1.4-6.5) 10^3/uL Lymph # (Auto) (1.2-3.8) 10^3/uL [place] # (Auto) (0.3-0.8) 10^3/uL Abs Immat Gran (auto) (0.00-0.03) 10^3/uL Imm/Tot Granulo (auto) (0.0-0.5) % Sodium 134 L (136-145) mmol/L Potassium 3.4 L (3.5-5.1) mmol/L Chloride 108 H (98-107) mmol/L Carbon Dioxide 17.0 L (21.0-32.0) mmol/L BUN 6.0 L (7.0-18.0) mg/dL Glucose 285 H (74-106) mg/dL Calcium 7.8 L (8.5-10.1) mg/dL Phosphorus 1.1 L* (2.6-4.7) mg/dL Magnesium (1.8-2.4) mg/dL AST (15-37) U/L Alkaline Phosphatase (46-116) U/L Total Protein (6.4-8.2) g/dL Albumin (3.4-5.0) g/dL Lipase (73.0-393.0) U/L Urine Protein (NEG/TRACE) mg/dL Urine Glucose (UA) (NEGATIVE) mg/dL Urine Ketones (NEGATIVE) mg/dL Urine Occult Blood (NEGATIVE) Urine RBC (0-2) #/HPF Urine WBC (NONE SEEN) #/HPF Urine Bacteria (NONE SEEN) #/HPF Urine Casts (NONE SEEN) #/LPF Acetone, Qual (NEGATIVE) POC Glucose (74-106) mg/dL Diabetes panel 06/19/23 06/19/23 06/20/23 Range/Units 18:29 23:29 02:09 Sodium 133 L 136 136 (136-145) mmol/L Potassium 3.8 2.7 L* 2.8 L* (3.5-5.1) mmol/L Chloride 98 107 108 H (98-107) mmol/L Carbon Dioxide 7.5 L 10.6 L 13.1 L (21.0-32.0) mmol/L BUN 7.0 6.0 L 7.0 (7.0-18.0) mg/dL Creatinine 0.87 0.81 0.76 (0.55-1.02) mg/dL Glucose 379 H 233 H 147 H (74-106) mg/dL Calcium 8.6 7.7 L 7.7 L (8.5-10.1) mg/dL AST 16 (15-37) U/L ALT 20 (14-59) U/L Alkaline Phosphatase 121 H (46-116) U/L Total Protein 8.6 H (6.4-8.2) g/dL Albumin 2.8 L (3.4-5.0) g/dL 06/20/23 06/20/23 Range/Units 04:01 10:02 Sodium 136 134 L (136-145) mmol/L Potassium 3.4 L 3.4 L (3.5-5.1) mmol/L Chloride 110 H 108 H (98-107) mmol/L Carbon Dioxide 13.5 L 17.0 L (21.0-32.0) mmol/L BUN 6.0 L 6.0 L (7.0-18.0) mg/dL Creatinine 0.70 0.58 (0.55-1.02) mg/dL Glucose 159 H 285 H (74-106) mg/dL Calcium 7.9 L 7.8 L (8.5-10.1) mg/dL AST 10 L (15-37) U/L ALT 18 (14-59) U/L Alkaline Phosphatase 98 (46-116) U/L Total Protein 6.8 (6.4-8.2) g/dL Albumin 2.2 L (3.4-5.0) g/dL Calcium panel 06/19/23 06/19/23 06/20/23 Range/Units 18:29 23:29 02:09 Calcium 8.6 7.7 L 7.7 L (8.5-10.1) mg/dL Phosphorus 1.1 L* 1.1 L* (2.6-4.7) mg/dL Albumin 2.8 L (3.4-5.0) g/dL 06/20/23 06/20/23 Range/Units 04:01 10:02 Calcium 7.9 L 7.8 L (8.5-10.1) mg/dL Phosphorus 1.4 L* 1.1 L* (2.6-4.7) mg/dL Albumin 2.2 L (3.4-5.0) g/dL Pituitary panel 06/19/23 06/19/23 06/20/23 Range/Units 18:29 23:29 02:09 Sodium 133 L 136 136 (136-145) mmol/L Potassium 3.8 2.7 L* 2.8 L* (3.5-5.1) mmol/L Chloride 98 107 108 H (98-107) mmol/L Carbon Dioxide 7.5 L 10.6 L 13.1 L (21.0-32.0) mmol/L BUN 7.0 6.0 L 7.0 (7.0-18.0) mg/dL Creatinine 0.87 0.81 0.76 (0.55-1.02) mg/dL Glucose 379 H 233 H 147 H (74-106) mg/dL Calcium 8.6 7.7 L 7.7 L (8.5-10.1) mg/dL 06/20/23 06/20/23 Range/Units 04:01 10:02 Sodium 136 134 L (136-145) mmol/L Potassium 3.4 L 3.4 L (3.5-5.1) mmol/L Chloride 110 H 108 H (98-107) mmol/L Carbon Dioxide 13.5 L 17.0 L (21.0-32.0) mmol/L BUN 6.0 L 6.0 L (7.0-18.0) mg/dL Creatinine 0.70 0.58 (0.55-1.02) mg/dL Glucose 159 H 285 H (74-106) mg/dL Calcium 7.9 L 7.8 L (8.5-10.1) mg/dL Adrenal panel 06/19/23 06/19/23 06/20/23 Range/Units 18:29 23:29 02:09 Sodium 133 L 136 136 (136-145) mmol/L Potassium 3.8 2.7 L* 2.8 L* (3.5-5.1) mmol/L Chloride 98 107 108 H (98-107) mmol/L Carbon Dioxide 7.5 L 10.6 L 13.1 L (21.0-32.0) mmol/L BUN 7.0 6.0 L 7.0 (7.0-18.0) mg/dL Creatinine 0.87 0.81 0.76 (0.55-1.02) mg/dL Glucose 379 H 233 H 147 H (74-106) mg/dL Calcium 8.6 7.7 L 7.7 L (8.5-10.1) mg/dL Total Bilirubin 0.8 (0.2-1.0) mg/dL AST 16 (15-37) U/L ALT 20 (14-59) U/L Alkaline Phosphatase 121 H (46-116) U/L Total Protein 8.6 H (6.4-8.2) g/dL Albumin 2.8 L (3.4-5.0) g/dL 06/20/23 06/20/23 Range/Units 04:01 10:02 Sodium 136 134 L (136-145) mmol/L Potassium 3.4 L 3.4 L (3.5-5.1) mmol/L Chloride 110 H 108 H (98-107) mmol/L Carbon Dioxide 13.5 L 17.0 L (21.0-32.0) mmol/L BUN 6.0 L 6.0 L (7.0-18.0) mg/dL Creatinine 0.70 0.58 (0.55-1.02) mg/dL Glucose 159 H 285 H (74-106) mg/dL Calcium 7.9 L 7.8 L (8.5-10.1) mg/dL Total Bilirubin 0.4 (0.2-1.0) mg/dL AST 10 L (15-37) U/L ALT 18 (14-59) U/L Alkaline Phosphatase 98 (46-116) U/L Total Protein 6.8 (6.4-8.2) g/dL Albumin 2.2 L (3.4-5.0) g/dL All other labs normal. Imaging Abdomen CT scan report/results: image reviewed Assessment and Plan Assessment and Plan (1) Appendicitis with perforation: Assessment and Plan: With the above findings have recommended proceeding with robotic laparoscopic- assisted appendectomy. The risks benefits options and potential complications of the procedure were discussed in detail with the patient and she agrees to proceed and consent was signed. (2) Appendicitis with abscess: (3) DKA (diabetic ketoacidosis): (4) Acute dehydration: (5) Hypertension:
--- NOTE | 2023-06-20 11:24 | CM.NOTE ---
Rounds made with Dr. Squires. LUIS ENRIQUE for surgery today.
[2023-06-20] MEDS: SOD PHOSPHATE,MONOBASIC-DIBAS 30 MMOL in 0.9 % SODIUM CHLORIDE 250 ML 43.33 MMOL IV (11:38)
[2023-06-20] MEDS: LACTATED RINGER'S SOLUTION 1,000 ML 50 ML IV (12:21)
[2023-06-20] MEDS: BUPIVACAINE HCL 0.5% PF 50 MG/10 ML VIAL 20 ML INJ (12:48)
--- NOTE | 2023-06-20 14:54 | PM.GSPRC ---
Date of procedure: 06/20/23 Indications for Procedure: This patient is a 48-year-old female who presented to emergency room yesterday with approximate forty history of progressive abdominal pain. She also developed nausea and vomiting. Through the Emergency Department blood work and CT abdomen and pelvis revealed findings consistent with acute appendicitis with likely perforation. Patient was admitted to the intensive care and place on IV antibiotics. Following evaluation I recommended proceeding with robotic-assisted appendectomy. The risks benefits options and potential complications of the procedure were discussed in detail with her and she agreed to proceed and consent was signed. Pre-op diagnosis: acute appendicitis with perforation and abscess Post-op diagnosis: same Procedure: robotic-assisted appendectomy and drainage of periappendiceal abscess, drain placement [facility] Surgeon: Js Cool Procedure Summary: The patient was brought to the operating room and placed in the supine position. Gen. anesthesia was induced the patient was intubated. The abdomen was prepped and draped in sterile fashion. Patient had been receiving IV antibiotics since admission. A site in the left upper quadrant was infiltrated with local anesthetic. A small incision is made. An 8 mm robotic port was placed through this incision and advanced into the peritoneal cavity with laparoscopic guidance. The abdomen was then insufflated to 15 mmHg of carbon dioxide. Camera was introduced and the laparoscopy performed. Safe port site entry was confirmed. A 2nd 8 mm port was placed in the left lateral abdomen under direct visualization. The initial port was then changed to a 12 mm port. An additional 8 mm port was then placed in the left lower quadrant under direct visualization. The patient was then placed in slight Trendelenburg position and banked to the left. Next the da Razia X I was brought to the field. All ports were direct and camera introduced as well as instruments in standard fashion. At this point I left the table and attended the surgeon console. Immediately noted was patient's markedly distended bladder. We delayed the case to allow catheter placement on the operating table which decompress it nicely. There were noted inflammatory changes in right lower quadrant. Upon blunt dissection an abscess cavity was entered.Purulent fluid was encountered. This was readily aspirated. Adjacent to this there was a free small appendicolith. The appendix was adjacent to this. This was markedly inflamed and thickened. Segment of the mesoappendix was divided with the vessel sealer. The robotic stapler with a blue load was then brought into the field and placed across the base of the appendix and fired. After doing so a secure staple line at the base of the appendix was noted as well as hemostasis. Next a 5 mm port was placed in the right lower quadrant and a YOSELIN drain threaded through this port and moved into proper position at the prior abscess cavity. The appendix and the appendicolith were then placed in an Endo Catch bag. This was removed in its entirety. At this point the abdomen was desufflated all ports were removed and the da Razia undocked. The drain was sutured in place with 3-0 nylon suture and placed to bulb suction. Skin incisions were closed with subcuticular sutures of 4-0 Vicryl. Sterile dressings were applied. Sponge needle and sponge counts were correct at the end of the procedure. The patient tolerated the procedure well and was transferred to the recovery area in stable condition. Estimated blood loss (mL): 5 Specimens: none Complications: No
[2023-06-20] MEDS: HYDROCODONE/ACETAMINOPHEN 5-325 MG TABLET 1 TAB PO (16:05)
[2023-06-20] MEDS: INSULIN ASPART 300 UNIT/3 ML PEN SUBQ ×2 (16:17→21:15)
--- NOTE | 2023-06-20 19:42 | PC.NURSE ---
3 small dressings intact. number 3 with old marked drainage. Large bulky dressing around YOSELIN drainage clean, dry, and intact.
[2023-06-20] MEDS: ERTAPENEM SODIUM 0.5 GM in 0.9 % SODIUM CHLORIDE 50 ML IV (21:13)
[2023-06-21] VITALS (54 sets, daily range): BP systolic 100–107; BP diastolic 55–66; PULSE 73–94; RESP 9–26; TEMP 36.7; O2SAT 98–99
[2023-06-21 04:36] LABS: Basophils Percent Auto 0.3 % (0.2-2.0); Hematocrit 29.5 % (36.0-48.0); Hemoglobin 9.6 g/dL (12.0-16.0); Immature Granulocytes Abs Auto 0.14 10^3/uL (0.00-0.03); Immature Granulocytes Pct Auto 1.1 % (0.0-0.5); Lymphocytes Absolute Auto 0.6 10^3/uL (1.2-3.8); Lymphocytes Percent Auto 4.7 % (20.5-60.0); Mean Corpuscular HGB Conc 32.5 g/dL (29.9-35.2); Mean Corpuscular Hemoglobin 28.2 pg (26.7-34.0); Mean Corpuscular Volume 86.8 fL (81.0-99.0); Mean Platelet Volume 9.7 fL (9.5-13.5); Monocytes Absolute Auto 0.8 10^3/uL (0.3-0.8); Monocytes Percent Auto 6.1 % (1.7-12.0); Neutrophils Absolute Auto 11.7 10^3/uL (1.4-6.5); Neutrophils Percent Auto 87.8 % (43.0-75.0); Platelet Count 238 10^3/uL (150-450); Red Cell Distribution Width 13.5 % (11.0-15.0); White Blood Count 13.3 10^3/uL (4.0-11.0)
[2023-06-21 04:51] LABS: Anion Gap 13.7; BUN Creatinine Ratio 13.5; Calcium 7.7 mg/dL (8.5-10.1); Carbon Dioxide 18.6 mmol/L (21.0-32.0); Chloride 106 mmol/L (98-107); Estimated GFR (African America >60 (>=60); Estimated GFR (Non-African Ame >60 (>=60); Glucose 345 mg/dL (74-106); Potassium 3.3 mmol/L (3.5-5.1); Sodium 135 mmol/L (136-145)
[2023-06-21] MEDS: INSULIN ASPART 300 UNIT/3 ML PEN SUBQ (08:54)
[2023-06-21] MEDS: POLYETHYLENE GLYCOL 3350 17 GM POWDER PACKET PO (08:56)
[2023-06-21] MEDS: INSULIN DETEMIR 300 UNIT/3 ML INSULN.PEN 20 UNIT SUBQ (08:56)
[2023-06-21] MEDS: HYDROCODONE/ACETAMINOPHEN 5-325 MG TABLET 1 TAB PO (08:59)
--- NOTE | 2023-06-21 10:29 | CM.NOTE ---
Rounds made with Dr. Squires, pt sitting up in chair eating breakast. Possible discharge to home today if ok with Dr. Cool.
--- NOTE | 2023-06-21 11:23 | PM.DS1 ---
DS: Providers Provider Date of admission: 06/19/23 21:12 Primary care physician: Non-Staff Physician, Consults: 06/20/23 Consult to General Surgeon Routine Consulting Provider: Js Cool DS: Diagnosis Discharge Diagnosis (1) Appendicitis with perforation: (2) Appendicitis with abscess: (3) DKA (diabetic ketoacidosis): (4) Acute dehydration: (5) Hypertension: DS: Summary Hospital Course Hospital Course: Reason for admission: See H&P for details. 48 y/o female to ER with abdominal pain for several days. Pain in RLQ and across lower abdomen. Pain with moving or bending. Developed severe nausea and emesis. Pain worsened and to ER. Labs showed glucose over 300 and elevated WBC. Patient had not taken medication including insulin for [address] abdomen showed perforated appendicitis with abscess. Admitted for treatment. Hospital course: Started invanz and surgery consulted. Started IV fluids and insulin drip. Labs slowly improved. Pain tolerable with medication. BS under 200 but still with elevated anion gap and added D5 to fluids. Repeat labs showed normal anion gap and gave levemir then stopped insulin drip. Evaluated by surgery and taken to OR. Performed robotic assisted lap appy and found perforated appendicitis with abscess. Irrigated abdomen and drain placed. Did well after surgery. Advanced to liquid then regular diet. No nausea. Pain tolerable with oral medication and ambulating well. Afebrile and WBC improved. Discharged home in stable condition. F/u with surgeon in office 06/26. Gave list of new PCPs and need to establish in 2-4 weeks. Continue medication as directed. Time Spent with Patient Time attestation: Total time spent providing and/or coordinating discharge services: Exam Constitutional Vital Signs, click to edit/add: Last Vital Signs Temp 98.1 F 06/21/23 08:45 Pulse 88 06/21/23 10:31 Resp 16 06/21/23 08:45 BP 100/55 06/21/23 08:45 Pulse Ox 98 06/21/23 08:45 O2 Del Method Room Air 06/21/23 08:45 Documenting provider has reviewed patient's vital signs: yes Common normals: no apparent distress, oriented x3 and alert HENMT Common normals: normocephalic Eye Common normals: PERRL and EOMs intact bilaterally Respiratory Common normals: normal respiratory effort and clear to auscultation bilaterally Cardio Common normals: regular rate, regular rhythm, no gallops, no murmurs and no rub GI Auscultation: normoactive bowel sounds Palpation: tender (Appropriately tender); no guarding Extremity Common normals: no pedal edema DS: Data Data Completed and Pending Labs on day of discharge: Labs from last 24 hours 06/21/23 04:20 WBC 13.3 H RBC 3.40 L Hgb 9.6 L Hct 29.5 L MCV 86.8 MCH 28.2 MCHC 32.5 RDW 13.5 Plt Count 238 MPV 9.7 Neut % (Auto) 87.8 H Lymph % (Auto) 4.7 L [place] % (Auto) 6.1 Eos % (Auto) 0.0 L Baso % (Auto) 0.3 Neut # (Auto) 11.7 H Lymph # (Auto) 0.6 L [place] # (Auto) 0.8 Eos # (Auto) 0.0 Baso # (Auto) 0.0 Abs Immat Gran (auto) 0.14 H Imm/Tot Granulo (auto) 1.1 H Sodium 135 L Potassium 3.3 L Chloride 106 Carbon Dioxide 18.6 L Anion Gap 13.7 BUN 7.0 Creatinine 0.52 L Est GFR ( Amer) >60 Est GFR (Non-Af Amer) >60 BUN/Creatinine Ratio 13.5 Glucose 345 H Calcium 7.7 L Discharge Plan Discharge Condition: Fair Discharge Medications: New oxycodone-acetaminophen 5-325 mg tablet 1 tab PO QID PRN (Reason: pain) 5 Days Qty: 20 0RF amoxicillin-pot clavulanate 875-125 mg tablet 1 tab PO Q12H 14 Days Qty: 28 0RF Continued Novolin R Regular U100 Insulin metformin 1,000 mg tablet 1,000 mg PO BID Qty: 60 0RF lisinopril 10 mg tablet 10 mg PO DAILY Qty: 30 0RF insulin glargine [Basaglar KwikPen U-100 Insulin] 100 unit/mL (3 mL) insulin pen 20 unit SUBCUT ACHS Qty: 1 0RF Activity: increase activity as tolerated Diet: advance to your usual diet Patient Instructions: Appendicitis (GEN) Forms: Portal Instructions Follow Up Appointments: Dr Cool follow up Monday @ 1:00
--- NOTE | 2023-06-22 12:04 | CM.DCFOLLOWU ---
Person spoke with: patient How are you feeling? alright How is your pain? some pain, more pain once pain meds wear off, but is tolerating Did you understand your discharge instructions? yes Do you have any questions about your discharge instructions? no Were you given any prescriptions at discharge? yes Were you able to get your prescriptions filled? yes they only could fill half and she is picking other half up today Do you understand how to take your medications as ordered? yes Do you have any questions about your follow up appointment and do you plan to keep your follow up appointment? no questions, follow up MondayJune 26 at 1:[address] Cool Is there anything else that you would like to discuss? Pt did ask if she was discharged on anything for nausea, after looking over meds, there was nothing listed for nausea. Advised to call Dr. Palacio office or PCP Questions/Comments/Concerns/Other:
== END 2023-06-21 14:11 | disposition home or self-care (01) | DRG 338 ==
LOC: ER 21:14 → ICU 21:21
PROVIDERS: Emergency Medicine; Internal Medicine; Physician Assistant; Surgery; Admitting Provider Family Medicine; Emergency Provider Emergency Medicine; Visit Provider Family Medicine
PROC: 0DTJ4ZZ Resection of Appendix, Percutaneous Endoscopic Approach (ICD-10-PCS; principal; 2023-06-20 12:45)
DX: K35.33 Acute appendicitis with perforation, localized peritonitis, and gangrene, with abscess (principal); E11.10 Type 2 diabetes mellitus with ketoacidosis without coma; E86.0 Dehydration; I10 Essential (primary) hypertension; E78.5 Hyperlipidemia, unspecified; N32.89 Other specified disorders of bladder; K38.1 Appendicular concretions; T38.3X6A Underdosing of insulin and oral hypoglycemic [antidiabetic] drugs, initial encounter; Z91.128 Patient's intentional underdosing of medication regimen for other reason; Z79.84 Long term (current) use of oral hypoglycemic drugs; Z79.4 Long term (current) use of insulin; Z79.899 Other long term (current) drug therapy; Z98.891 History of uterine scar from previous surgery
CPT/HCPCS: 36415; 71045; 74177; 80048; 80053; 80076; 81001; 81003; 82009; 82948; 83605; 83690; 83735; 84100; 84484; 84703; 85025; 87040; 88304; 93005; 96361; 96365; 96366; 96367; 96368; 96375; 96376; 99285; J1170; J1335; J2704; Q3014